=== PATIENT | female | born 1965 | race Caucasian/White ===

== ENCOUNTER → 2017-08-14 | Outpatient (CLI) | payer BC ==
[~2017-08-14] VITALS: Ht 162.6 cm; Wt 94.5 kg
[~2017-08-14] MED LIST: ALEVE LIQUID G220 MG PO; ALEVE220 MG PO; BENTYL20 MG PO; CITALOPRAM HBR20 MG PO; CITRATE OF MAG296 ML PO; HYDROCODON-ACE1 EAC7 PO; NORCO 5/3251 TABLET PO; NORVASC2.5 MG PO; PROCARDIA XL30 MG PO; SUPREP BOWEL P354 ML PO; ULTRAM50 MG PO; XARELTO15 MG PO; ZOFRAN ODT4 MG PO; ZOFRAN4 MG PO
== END | disposition home or self-care (01) ==
LOC: AMB 09:00
PROC: 0DJD8ZZ Inspection of Lower Intestinal Tract, Via Natural or Artificial Opening Endoscopic (ICD-10-PCS; principal; 2017-08-14)
DX: Z12.11 Encounter for screening for malignant neoplasm of colon (principal); K57.30 Diverticulosis of large intestine without perforation or abscess without bleeding; K62.89 Other specified diseases of anus and rectum; Z68.36 Body mass index [BMI] 36.0-36.9, adult; Z88.2 Allergy status to sulfonamides; Z88.8 Allergy status to other drugs, medicaments and biological substances